=== PATIENT | female | born 1955 | race Caucasian/White ===

== ENCOUNTER 2017-03-08 07:55 | Day surgery (SDC) | payer BC ==
[~2017-03-08 07:55] MED LIST: Midazolam 1 MG/ML 2 ML SDV ONE; fentaNYL 100 MCG/2 ML SDV ONE
[2017-03-08] MEDS ORDERED: Midazolam 1 MG/ML 2 ML SDV IV ONE ×2 (07:56→09:31)
[2017-03-08] MEDS ORDERED: fentaNYL 100 MCG/2 ML SDV IV ONE ×2 (07:56→09:32)
[2017-03-08] MEDS ORDERED: Lactated Ringers 1,000 ML IV SCH (08:30)
--- NOTE | 2017-03-08 14:17 | OR ---
DATE: 03/08/2017 REFERRING PROVIDER: Marisabel Ojeda PA-C PREOPERATIVE DIAGNOSES: Screening colonoscopy and intermittent diarrhea with constipation. Also, had a CT scan that shows questionable thickening of the sigmoid colon. POSTOPERATIVE DIAGNOSES: Screening colonoscopy and intermittent diarrhea with constipation. Also, had a CT scan that shows questionable thickening of the sigmoid colon. PROCEDURES: Total colonoscopy with snare excision of a small 2-mm sigmoid polyp. ANESTHESIA: Conscious sedation with IV Versed and fentanyl. SPECIMEN: Not retrieved. INDICATION FOR PROCEDURE: This 61-year-old female, referred for screening colonoscopy. She has not had a prior one, and the cause of her alternating constipation and diarrhea is unknown. A CT scan of the abdomen was done, which showed questionable thickening of the sigmoid colon. DESCRIPTION OF PROCEDURE: After adequate preparation, a colonoscope was inserted into the rectum. This was easily passed all the way to the cecum. Confirmation of the cecum was made by visualization of the ileocecal valve on palpation in the right lower quadrant. A photograph of the ileocecal valve was taken on withdrawal of the scope. The bowel prep was good. The only abnormality noted was a small sigmoid polyp, about 2-mm in size. A snare was encircled around this and it was clipped off, however, I do not think I was able to retrieve the polyp, but it was too small to be of any consequence anyway. In the sigmoid area, there is no evidence of thickening all the way from the rectosigmoid junction to the splenic flexure. A photograph of the sigmoid mucosa was taken for a inbound customer service representative view. Rectal examination was normal. No anal fissures or hemorrhoids were noted. Air was suctioned from the colon, and the scope removed. RECOMMENDATION: Followup screening colonoscopy in 5 years for polyp surveillance. [facility] /[id number] cc: Marisabel Ojeda PA-C [facility]
[2017-03-08 15:59] VITALS: BP 130/71
== END 2017-03-08 11:50 | disposition home or self-care (01) ==
LOC: DL.ENDO 07:55
PROVIDERS: ATTEND Surgery
PROC: 0DBN8ZZ Excision of Sigmoid Colon, Via Natural or Artificial Opening Endoscopic (ICD-10-PCS; principal; 2017-03-08)
DX: R19.7 Diarrhea, unspecified (principal); Z88.5 Allergy status to narcotic agent; Z88.1 Allergy status to other antibiotic agents
CPT/HCPCS: 45385; J2250; J3010; J7120